=== PATIENT | female | born 1965 | race Caucasian/White ===

== ENCOUNTER → 2021-10-22 17:12 | Outpatient (BNVA) | payer OTHER, SELFPAY | PROVIDERS: Visit Provider Emergency Medicine | DX: M25.512 Pain in left shoulder (principal); S60.222A Contusion of left hand, initial encounter | CPT/HCPCS: 73030 ==

== ENCOUNTER → 2022-06-19 14:45 | Outpatient (BNVA) | payer OTHER, SELFPAY | PROVIDERS: Visit Provider Nurse Practitioner Family | DX: N39.0 Urinary tract infection, site not specified (principal) | CPT/HCPCS: 81000; 87086 ==

== ENCOUNTER → 2023-09-08 15:20 | Outpatient (BNVA) | payer OTHER, SELFPAY | PROVIDERS: Visit Provider Emergency Medicine | DX: M25.562 Pain in left knee (principal) | CPT/HCPCS: 73562 ==